=== PATIENT | female | born 1990 | race African-American/Black ===

== ENCOUNTER 2017-05-23 15:36 | Inpatient (IN) ==
[2017-05-23] MEDS ORDERED: DEXTROSE 5% NACL 0.45% 1,000 ML IV SCH (16:00)
[2017-05-23] MEDS ORDERED: DEXTROSE 50% 25 GM/50 ML SYRINGE IV ONE (16:02)
[2017-05-23] MEDS ORDERED: DEXTROSE 50% 25 GM/50 ML VIAL IV STA (16:06)
[2017-05-23 16:42] LABS: Basophils % 0.2 % (0.0-0.8); Eosinophils % 0.4 % (0.00-10.9); Hematocrit 30.1 VOL% (35.7-47.0); Hemoglobin 10.7 GM/DL (12.0-16.0); Immature Granulocytes % 0.6 %; Immature Granulocytes Absolute 0.05 #; Lymphocytes # 1.1 10*3/uL (1.4-4.0); Lymphocytes % 13.1 % (21.3-54.2); Mean Corpuscular HGB Conc 35.5 GM/DL (32-36); Mean Corpuscular Hemoglobin 30 PG (27-34); Mean Corpuscular Volume 85.3 FL (87-102); Mean Platelet Volume 9.5 FL (9.6-12.0); Monocytes # 0.6 10*3/uL (0.11-0.8); Monocytes % 6.7 % (1.7-12.7); Neutrophils # 6.8 10*3/uL (1.4-7.4); Platelet Count 269 T/CUMM (130-400); Red Blood Count 3.53 MC/CUMM (3.8-5.5); Red Cell Distribution Width 12.2 % (9.3-17.3); White Blood Count 8.6 T/CUMM (4-12)
[2017-05-23 17:12] LABS: Apearance,Urine Slightly Hazy (Clear); Bilirubin,Urine Negative (Negative); Blood, Urine Small mg/dL (Negative); Glucose,Urine (UA) >=500 mg/dL (Negative); Ketones,Urine Negative (Negative); Mucus,Urine Occasional /LPF (Occasional); Nitrite,Urine Negative (Negative); Protein,Urine 100 MG/DL; RBC,Urine 3 /HPF (0-4); Squamous Epithelial Cell,Urine Occasional /HPF (0-10); Urine Color Yellow (Yellow); Urine Specific Gravity 1.009 (1.001-1.035); Urine Urobilinogen < 2.0 EU/DL (0.2-1.0)
[2017-05-23 17:12] LABS: Albumin 2.8 G/DL (3.4-5.0); Bilirubin,Total 0.6 MG/DL (0.2-1.0); Calcium 9.1 MG/DL (8.5-10.1); Osmolality,Calculated 273.5 MOS/KG (273-304); Potassium 3.7 MMOL/L (3.5-5.1); Total Protein 6.4 G/DL (6.4-8.3)
[2017-05-23 17:15] LABS: Barbiturates Screen,Urine Negative (Negative); Benzodiazepines Screen,Urine Negative (Negative); Cannabinoid Screen,Urine Negative (Negative); Opiate Screen,Urine Negative (Negative); Phencyclidine Screen,Urine Negative (Negative)
[2017-05-23] MEDS ORDERED: GLUCAGON 1 MG VIAL IM PRN (18:00)
[2017-05-23] MEDS ORDERED: MAGNESIUM HYDROXIDE SUSP 30 ML UDCUP PO PRN (18:00)
[2017-05-23] MEDS ORDERED: BISACODYL 10 MG SUPP RECTAL PRN (18:00)
[2017-05-23] MEDS ORDERED: DEXTROSE 50% 25 GM/50 ML VIAL IV PRN (18:00)
[2017-05-23] MEDS ORDERED: IBUPROFEN 800 MG TABLET PO PRN (18:00)
[2017-05-23] MEDS: DEXTROSE 5% LACTATED RINGERS 1,000 ML IV SCH (18:58)
[2017-05-23] MEDS: DOCUSATE SODIUM 100 MG CAPSULE PO SCH (21:48)
[2017-05-23] MEDS: INSULIN LISPRO 100 UNIT/ML SUBCUT SCH (21:49)
[2017-05-24] MEDS: DEXTROSE 5% LACTATED RINGERS 1,000 ML IV SCH (03:46)
[2017-05-24] MEDS: ONDANSETRON 4 MG/2 ML VIAL IV PRN ×2 (03:51→13:49)
[2017-05-24] MEDS: ACETAMINOPHEN 325 MG TABLET PO PRN ×2 (06:17→22:18)
[2017-05-24] MEDS: INSULIN LISPRO 100 UNIT/ML SUBCUT SCH ×3 (08:34→13:01)
[2017-05-24] MEDS: DOCUSATE SODIUM 100 MG CAPSULE PO SCH (08:35)
[2017-05-24] MEDS ORDERED: INSULIN NPH 100 UNIT/ML SUBCUT SCH (12:30)
[2017-05-24] MEDS ORDERED: INSULIN REGULAR 100 UNIT/ML ONE (12:41)
[2017-05-24] MEDS: INSULIN REGULAR 100 UNIT/ML SUBCUT SCH ×2 (12:49→17:07)
[2017-05-24] MEDS: INSULIN NPH 100 UNIT/ML SUBCUT SCH (12:49)
[2017-05-24] MEDS ORDERED: INSULIN NPH 100 UNIT/ML SUBCUT ONE (22:24)
[2017-05-25] MEDS: INSULIN REGULAR 100 UNIT/ML SUBCUT PRN ×5 (00:36→23:57)
[2017-05-25] MEDS: INSULIN NPH 100 UNIT/ML SUBCUT SCH (08:18)
[2017-05-25] MEDS: INSULIN REGULAR 100 UNIT/ML SUBCUT SCH ×3 (08:19→18:26)
[2017-05-25] MEDS: LABETALOL 100 MG TABLET PO SCH (23:57)
[2017-05-26] MEDS: ALUMINUM/MAGNES/SIMETH MAX STR 30 ML UDCUP PO PRN ×2 (02:40→20:00)
[2017-05-26] MEDS: INSULIN REGULAR 100 UNIT/ML SUBCUT PRN (04:25)
[2017-05-26] MEDS ORDERED: DEXTROSE 50% 25 GM/50 ML VIAL IV PRN (07:15)
[2017-05-26] MEDS ORDERED: GLUCAGON 1 MG VIAL IM PRN (07:15)
[2017-05-26] MEDS: INSULIN NPH 100 UNIT/ML SUBCUT SCH (08:16)
[2017-05-26] MEDS: INSULIN REGULAR 100 UNIT/ML SUBCUT SCH ×7 (08:17→20:00)
[2017-05-26] MEDS: ONDANSETRON 4 MG/2 ML VIAL IV PRN (08:20)
[2017-05-26] MEDS: LABETALOL 100 MG TABLET PO SCH ×2 (10:04→20:00)
[2017-05-27] MEDS: INSULIN REGULAR 100 UNIT/ML SUBCUT SCH ×8 (00:08→22:18)
[2017-05-27 08:19] LABS: Basophils % 0.2 % (0.0-0.8); Eosinophils % 0.7 % (0.00-10.9); Hematocrit 28.5 VOL% (35.7-47.0); Hemoglobin 10.1 GM/DL (12.0-16.0); Immature Granulocytes % 0.2 %; Immature Granulocytes Absolute 0.01 #; Lymphocytes % 18.2 % (21.3-54.2); Mean Corpuscular HGB Conc 35.4 GM/DL (32-36); Mean Corpuscular Hemoglobin 30 PG (27-34); Mean Corpuscular Volume 85.1 FL (87-102); Mean Platelet Volume 9.9 FL (9.6-12.0); Monocytes # 0.5 10*3/uL (0.11-0.8); Monocytes % 8.2 % (1.7-12.7); Neutrophils % 72.5 % (38.7-73.9); Platelet Count 243 T/CUMM (130-400); Red Blood Count 3.35 MC/CUMM (3.8-5.5); White Blood Count 5.5 T/CUMM (4-12)
[2017-05-27] MEDS: INSULIN NPH 100 UNIT/ML SUBCUT SCH ×2 (08:32→17:07)
[2017-05-27 08:36] LABS: Calcium 8.3 MG/DL (8.5-10.1); Magnesium 1.8 MG/DL (1.8-2.4); Potassium 4.3 MMOL/L (3.5-5.1)
[2017-05-27] MEDS: LABETALOL 100 MG TABLET PO SCH ×2 (08:39→20:05)
[2017-05-27] MEDS: ONDANSETRON 4 MG/2 ML VIAL IV PRN ×2 (11:55→17:58)
[2017-05-27 14:41] LABS: VBG Base Excess 0.5 MEQ/L (0-4); VBG HCO3 24.9 MEQ/L (24-28); VBG Oxygen Saturation 98.4 %; VBG PH 7.431
[2017-05-27] MEDS ORDERED: PROMETHAZINE 25 MG SUPP RECTAL PRN (17:50)
[2017-05-27] MEDS ORDERED: PROMETHAZINE 12.5 MG SUPP RECTAL PRN (19:00)
[2017-05-28] MEDS: INSULIN REGULAR 100 UNIT/ML SUBCUT SCH ×8 (02:11→19:17)
[2017-05-28] MEDS: ONDANSETRON 4 MG/2 ML VIAL IV PRN (06:38)
[2017-05-28] MEDS: INSULIN NPH 100 UNIT/ML SUBCUT SCH ×2 (08:17→17:11)
[2017-05-28] MEDS: LABETALOL 100 MG TABLET PO SCH ×2 (09:51→21:59)
[2017-05-29] MEDS: INSULIN REGULAR 100 UNIT/ML SUBCUT SCH ×10 (02:32→22:00)
[2017-05-29] MEDS: INSULIN NPH 100 UNIT/ML SUBCUT SCH ×2 (08:41→17:14)
[2017-05-29] MEDS: LABETALOL 100 MG TABLET PO SCH ×2 (08:41→21:34)
[2017-05-29] MEDS ORDERED: DEXTROSE 50% 25 GM/50 ML VIAL IV PRN (16:51)
[2017-05-29] MEDS ORDERED: GLUCAGON 1 MG VIAL IM PRN (16:51)
[2017-05-29] MEDS: INSULIN GLARGINE 100 UNIT/ML SUBCUT SCH (21:34)
[2017-05-29] MEDS: DEXTROSE 5% LACTATED RINGERS 1,000 ML IV SCH (22:35)
[2017-05-30] MEDS: INSULIN LISPRO 100 UNIT/ML SUBCUT SCH ×3 (07:37→14:24)
[2017-05-30] MEDS: DEXTROSE 5% LACTATED RINGERS 1,000 ML IV SCH (08:18)
[2017-05-30] MEDS: INSULIN REGULAR 100 UNIT/ML SUBCUT SCH ×6 (08:34→22:18)
[2017-05-30] MEDS: LABETALOL 100 MG TABLET PO SCH ×2 (09:57→21:01)
[2017-05-30] MEDS: ONDANSETRON 4 MG/2 ML VIAL IV PRN (15:37)
[2017-05-30] MEDS: INSULIN GLARGINE 100 UNIT/ML SUBCUT SCH (21:01)
[2017-05-31 06:10] LABS: Basophils % 0.5 % (0.0-0.8); Eosinophils # 0.1 10*3/uL (0.0-0.87); Eosinophils % 1.4 % (0.00-10.9); Hematocrit 27.9 VOL% (35.7-47.0); Hemoglobin 9.8 GM/DL (12.0-16.0); Immature Granulocytes % 0.2 %; Immature Granulocytes Absolute 0.01 #; Lymphocytes % 33.5 % (21.3-54.2); Mean Corpuscular HGB Conc 35.1 GM/DL (32-36); Mean Corpuscular Hemoglobin 30 PG (27-34); Mean Corpuscular Volume 84.8 FL (87-102); Mean Platelet Volume 9.5 FL (9.6-12.0); Monocytes # 0.6 10*3/uL (0.11-0.8); Monocytes % 9.7 % (1.7-12.7); Neutrophils # 3.2 10*3/uL (1.4-7.4); Neutrophils % 54.7 % (38.7-73.9); Platelet Count 243 T/CUMM (130-400); Red Blood Count 3.29 MC/CUMM (3.8-5.5); Red Cell Distribution Width 11.9 % (9.3-17.3); White Blood Count 5.9 T/CUMM (4-12)
[2017-05-31 06:52] LABS: Calcium 8.9 MG/DL (8.5-10.1); Magnesium 1.7 MG/DL (1.8-2.4); Potassium 4.5 MMOL/L (3.5-5.1)
[2017-05-31] MEDS: INSULIN LISPRO 100 UNIT/ML SUBCUT SCH ×2 (09:13→12:41)
[2017-05-31] MEDS: LABETALOL 100 MG TABLET PO SCH ×2 (09:15→21:57)
[2017-05-31] MEDS: INSULIN GLARGINE 100 UNIT/ML SUBCUT SCH (21:57)
[2017-06-01] MEDS: INSULIN REGULAR 100 UNIT/ML SUBCUT SCH ×6 (00:27→15:11)
[2017-06-01] MEDS: INSULIN LISPRO 100 UNIT/ML SUBCUT SCH ×4 (08:49→17:30)
[2017-06-01] MEDS: LABETALOL 100 MG TABLET PO SCH ×2 (08:49→22:02)
[2017-06-01] MEDS: INSULIN GLARGINE 100 UNIT/ML SUBCUT SCH (22:01)
[2017-06-02] MEDS: INSULIN LISPRO 100 UNIT/ML SUBCUT SCH ×4 (08:45→17:32)
[2017-06-02] MEDS: INSULIN REGULAR 100 UNIT/ML SUBCUT SCH ×2 (08:45→19:30)
[2017-06-02] MEDS: DOCUSATE SODIUM 100 MG CAPSULE PO SCH ×2 (08:58→21:42)
[2017-06-02] MEDS: LABETALOL 100 MG TABLET PO SCH ×2 (08:58→21:42)
[2017-06-02] MEDS: MULTIVITAMIN (PRENATAL) TABLET PO SCH (09:00)
[2017-06-02] MEDS: INSULIN GLARGINE 100 UNIT/ML SUBCUT SCH (21:42)
[2017-06-03] MEDS: INSULIN REGULAR 100 UNIT/ML SUBCUT SCH ×4 (07:54→20:10)
[2017-06-03] MEDS: INSULIN LISPRO 100 UNIT/ML SUBCUT SCH ×3 (08:12→17:46)
[2017-06-03] MEDS: MULTIVITAMIN (PRENATAL) TABLET PO SCH (08:12)
[2017-06-03] MEDS: DOCUSATE SODIUM 100 MG CAPSULE PO SCH ×2 (08:13→20:51)
[2017-06-03] MEDS: LABETALOL 100 MG TABLET PO SCH ×2 (11:29→20:51)
[2017-06-03] MEDS: INSULIN GLARGINE 100 UNIT/ML SUBCUT SCH (20:51)
[2017-06-04 07:14] VITALS: BP 119/65
[2017-06-04] MEDS: INSULIN REGULAR 100 UNIT/ML SUBCUT SCH ×2 (07:28→09:42)
[2017-06-04] MEDS: LABETALOL 100 MG TABLET PO SCH (09:26)
[2017-06-04] MEDS: DOCUSATE SODIUM 100 MG CAPSULE PO SCH (09:26)
[2017-06-04] MEDS: MULTIVITAMIN (PRENATAL) TABLET PO SCH (09:26)
[2017-06-04] MEDS: INSULIN LISPRO 100 UNIT/ML SUBCUT SCH ×2 (09:27→14:29)
== END 2017-06-04 12:40 | disposition home or self-care (01) | DRG 781 ==
LOC: EDUNIT# → EDBD → N.ED 15:36 → N.EDINP 17:32 → N.OB 18:17
PROVIDERS: ADMIT Obstetrics & Gynecology; ATTEND Obstetrics & Gynecology

== ENCOUNTER 2017-06-05 20:40 | Inpatient (IN) ==
[2017-06-05] MEDS ORDERED: DEXTROSE 50% 25 GM/50 ML SYRINGE IV ONE (21:38)
[2017-06-05] MEDS ORDERED: DEXTROSE 50% 25 GM/50 ML VIAL IV STA (21:43)
[2017-06-05] MEDS ORDERED: DEXTROSE 10% 250 ML IV ONE (21:53)
[2017-06-05] MEDS ORDERED: DEXTROSE 10% 1,000 ML IV STA (21:58)
[2017-06-05] MEDS ORDERED: SODIUM CHLORIDE 0.9% 1,000 ML IV STA (22:07)
[2017-06-05] MEDS ORDERED: DEXTROSE 50% 25 GM/50 ML SYRINGE IV PRN (22:07)
[2017-06-05 22:57] LABS: Basophils % 0.1 % (0.0-0.8); Eosinophils % 0.2 % (0.00-10.9); Hematocrit 29.9 VOL% (35.7-47.0); Hemoglobin 10.6 GM/DL (12.0-16.0); Immature Granulocytes % 0.4 %; Immature Granulocytes Absolute 0.03 #; Lymphocytes % 11.3 % (21.3-54.2); Mean Corpuscular HGB Conc 35.5 GM/DL (32-36); Mean Corpuscular Hemoglobin 30 PG (27-34); Mean Corpuscular Volume 83.8 FL (87-102); Mean Platelet Volume 9.7 FL (9.6-12.0); Monocytes # 0.4 10*3/uL (0.11-0.8); Monocytes % 4.5 % (1.7-12.7); Neutrophils # 7.1 10*3/uL (1.4-7.4); Neutrophils % 83.5 % (38.7-73.9); Platelet Count 292 T/CUMM (130-400); Red Blood Count 3.57 MC/CUMM (3.8-5.5); Red Cell Distribution Width 11.6 % (9.3-17.3); White Blood Count 8.5 T/CUMM (4-12)
[2017-06-05 23:18] LABS: Alanine Aminotransferase 17 U/L (13-56); Albumin 2.8 G/DL (3.4-5.0); Alkaline Phosphatase 52 U/L (45-117); Aspartate Amino Transferase 14 U/L (0-37); Blood Urea Nitrogen 10 MG/DL (7-18); Glucose 159 MG/DL (74-106); Magnesium 1.8 MG/DL (1.8-2.4); Osmolality,Calculated 269.2 MOS/KG (273-304); Sodium 134 MMOL/L (136-145); Total Protein 6.6 G/DL (6.4-8.3)
[2017-06-05 23:47] LABS: Amorphous Crystals,Urine Occasional /HPF (Few); Apearance,Urine CLOUDY (Clear); Bacteria,Urine Occasional /HPF (Few); Bilirubin,Urine Negative (Negative); Blood, Urine Negative (Negative); Glucose,Urine (UA) >=500 mg/dL (Negative); Hyaline Casts,Urine 16 /LPF (0-3); Ketones,Urine Negative (Negative); Nitrite,Urine Negative (Negative); Protein,Urine 100 MG/DL; RBC,Urine 3 /HPF (0-4); Squamous Epithelial Cell,Urine Moderate /HPF (0-10); Urine Color Yellow (Yellow); Urine Urobilinogen < 2.0 EU/DL (0.2-1.0); WBC,Urine 4 /HPF (0-6)
[2017-06-05 23:59] LABS: Barbiturates Screen,Urine Negative (Negative); Benzodiazepines Screen,Urine Negative (Negative); Cannabinoid Screen,Urine Negative (Negative); Opiate Screen,Urine Negative (Negative); Phencyclidine Screen,Urine Negative (Negative)
[2017-06-06] MEDS ORDERED: cefTRIAXone 1,000 MG in SODIUM CHLORIDE 0.9% 100 ML IV STA (00:34)
[2017-06-06] MEDS ORDERED: cefTRIAXone 1,000 MG VIAL ONE (00:39)
[2017-06-06] MEDS ORDERED: ONDANSETRON 4 MG/2 ML VIAL IV PRN (03:48)
[2017-06-06] MEDS ORDERED: INFLUENZA VIRUS VACCINE 0.5 ML SYRINGE IM ONE (05:00)
[2017-06-06] MEDS ORDERED: DEXTROSE 50% 25 GM/50 ML VIAL IV PRN ×2 (05:01→12:19)
[2017-06-06] MEDS ORDERED: GLUCAGON 1 MG VIAL IM PRN ×2 (05:01→12:19)
[2017-06-06] MEDS ORDERED: BENZOCAINE/MENTHOL LOZENGE 18/BOX PO PRN (05:22)
[2017-06-06] MEDS ORDERED: DEXTROSE 10% 1,000 ML IV SCH (06:00)
[2017-06-06 06:04] LABS: Calcium 8.4 MG/DL (8.5-10.1); Osmolality,Calculated 276.8 MOS/KG (273-304); Potassium 3.8 MMOL/L (3.5-5.1)
[2017-06-06] MEDS: MULTIVITAMIN (PRENATAL) TABLET PO SCH (09:07)
[2017-06-06] MEDS: LABETALOL 100 MG TABLET PO SCH ×2 (09:07→20:46)
[2017-06-06] MEDS: ENOXAPARIN 40 MG/0.4 ML SYRINGE SUBCUT SCH (09:54)
[2017-06-06] MEDS: INSULIN REGULAR 100 UNIT/ML SUBCUT SCH ×2 (16:23→20:46)
[2017-06-06] MEDS: INSULIN LISPRO 100 UNIT/ML SUBCUT SCH (17:15)
[2017-06-06] MEDS ORDERED: MAGNESIUM HYDROXIDE SUSP 30 ML UDCUP PO PRN (19:17)
[2017-06-06] MEDS: DOCUSATE SODIUM 100 MG CAPSULE PO SCH (20:46)
[2017-06-06] MEDS ORDERED: INSULIN GLARGINE 100 UNIT/ML SUBCUT SCH (21:00)
[2017-06-07] MEDS: INSULIN REGULAR 100 UNIT/ML SUBCUT SCH ×4 (00:34→13:48)
[2017-06-07] MEDS: LABETALOL 100 MG TABLET PO SCH (09:16)
[2017-06-07] MEDS: MULTIVITAMIN (PRENATAL) TABLET PO SCH (09:16)
[2017-06-07] MEDS: ENOXAPARIN 40 MG/0.4 ML SYRINGE SUBCUT SCH (09:16)
[2017-06-07] MEDS: INSULIN LISPRO 100 UNIT/ML SUBCUT SCH ×3 (09:16→13:25)
[2017-06-07] MEDS: DOCUSATE SODIUM 100 MG CAPSULE PO SCH (09:16)
[2017-06-07 12:17] VITALS: BP 119/72
== END 2017-06-07 16:40 | disposition home or self-care (01) | DRG 566 ==
LOC: EDUNIT# → EDBD → N.ED 20:40 → N.EDINP 06-06 01:55 → N.OB 06-06 02:49

== ENCOUNTER 2018-01-28 06:44 | Observation (INO) ==
[2018-01-28] MEDS ORDERED: ONDANSETRON 4 MG/2 ML VIAL IV STA (07:22)
[2018-01-28] MEDS ORDERED: SODIUM CHLORIDE 0.9% 1,000 ML IV STA ×2 (07:22→09:03)
[2018-01-28] MEDS ORDERED: INSULIN LISPRO 100 UNIT/ML SUBCUT STA (07:23)
[2018-01-28 07:45] LABS: Apearance,Urine CLEAR (Clear); Bilirubin,Urine Negative (Negative); Blood, Urine Large mg/dL (Negative); Glucose,Urine (UA) >=500 mg/dL (Negative); Ketones,Urine 5 mg/dL (Negative); Nitrite,Urine Negative (Negative); Protein,Urine >=500 MG/DL; RBC,Urine 80 /HPF (0-4); Squamous Epithelial Cell,Urine Occasional /HPF (0-10); Urine Color Yellow (Yellow); Urine Specific Gravity 1.017 (1.001-1.035); Urine Urobilinogen < 2.0 EU/DL (0.2-1.0)
[2018-01-28 07:46] LABS: Basophils % 0.1 % (0.0-0.8); Eosinophils % 0.3 % (0.00-10.9); Hematocrit 30.8 VOL% (35.7-47.0); Hemoglobin 10.7 GM/DL (12.0-16.0); Immature Granulocytes % 0.1 %; Immature Granulocytes Absolute 0.01 #; Lymphocytes # 0.3 10*3/uL (1.4-4.0); Lymphocytes % 3.7 % (21.3-54.2); Mean Corpuscular HGB Conc 34.7 GM/DL (32-36); Mean Corpuscular Hemoglobin 29 PG (27-34); Mean Platelet Volume 9.5 FL (9.6-12.0); Monocytes # 0.4 10*3/uL (0.11-0.8); Monocytes % 5.5 % (1.7-12.7); Neutrophils # 6.9 10*3/uL (1.4-7.4); Neutrophils % 90.3 % (38.7-73.9); Platelet Count 249 T/CUMM (130-400); Red Blood Count 3.71 MC/CUMM (3.8-5.5); Red Cell Distribution Width 12.1 % (9.3-17.3); White Blood Count 7.7 T/CUMM (4-12)
[2018-01-28 07:50] LABS: Barbiturates Screen,Urine Negative (Negative); Benzodiazepines Screen,Urine Negative (Negative); Cannabinoid Screen,Urine Negative (Negative); Opiate Screen,Urine Negative (Negative); Phencyclidine Screen,Urine Negative (Negative)
[2018-01-28 08:06] LABS: Albumin 3.1 G/DL (3.4-5.0); Calcium 8.9 MG/DL (8.5-10.1); Osmolality,Calculated 296.2 MOS/KG (273-304); Potassium 3.9 MMOL/L (3.5-5.1); Total Protein 7.3 G/DL (6.4-8.3)
[2018-01-28 08:22] LABS: Band Neutrophils 6 % (0-10); Eosinophils 2 % (0-10); Lymphocytes 5 % (20-55); Platelet Estimate Adequate; Segmented Neutrophils 82 % (50-85); Total Cells Counted 100
[2018-01-28 08:23] LABS: Hypochromasia Slight
[2018-01-28] MEDS ORDERED: LABETALOL 20 MG/4 ML SYRINGE IV STA (09:03)
[2018-01-28] MEDS ORDERED: METOPROLOL TARTRATE 5 MG/5 ML VIAL IV STA (09:05)
[2018-01-28] MEDS ORDERED: ONDANSETRON 4 MG/2 ML VIAL IV PRN (09:43)
[2018-01-28] MEDS ORDERED: GLUCAGON 1 MG VIAL IM PRN (10:00)
[2018-01-28] MEDS ORDERED: LABETALOL 100 MG TABLET PO SCH (10:00)
[2018-01-28] MEDS: SODIUM CHLORIDE 0.9% 1,000 ML IV SCH ×2 (11:25→21:06)
[2018-01-28] MEDS: INSULIN REGULAR 100 UNIT/ML SUBCUT SCH ×5 (11:38→21:02)
[2018-01-28] MEDS: DILTIAZEM 30 MG TABLET PO SCH ×3 (12:27→21:03)
[2018-01-28] MEDS ORDERED: hydrALAZINE 20 MG/1 ML VIAL IV PRN (15:49)
[2018-01-28] MEDS ORDERED: INSULIN GLARGINE 100 UNIT/ML SUBCUT SCH (21:00)
[2018-01-29] MEDS: INSULIN REGULAR 100 UNIT/ML SUBCUT SCH ×6 (00:30→12:00)
[2018-01-29] MEDS ORDERED: IBUPROFEN 400 MG TABLET PO PRN (04:15)
[2018-01-29] MEDS: DEXTROSE 50% 25 GM/50 ML VIAL IV PRN ×2 (04:20→06:05)
[2018-01-29 06:06] LABS: Basophils % 0.2 % (0.0-0.8); Eosinophils # 0.1 10*3/uL (0.0-0.87); Eosinophils % 1.5 % (0.00-10.9); Hematocrit 25.8 VOL% (35.7-47.0); Hemoglobin 8.9 GM/DL (12.0-16.0); Immature Granulocytes % 0.3 %; Immature Granulocytes Absolute 0.02 #; Lymphocytes # 1.3 10*3/uL (1.4-4.0); Lymphocytes % 19.4 % (21.3-54.2); Mean Corpuscular HGB Conc 34.5 GM/DL (32-36); Mean Corpuscular Hemoglobin 29 PG (27-34); Mean Corpuscular Volume 82.7 FL (87-102); Mean Platelet Volume 9.6 FL (9.6-12.0); Monocytes # 0.5 10*3/uL (0.11-0.8); Monocytes % 8.1 % (1.7-12.7); Neutrophils # 4.7 10*3/uL (1.4-7.4); Neutrophils % 70.5 % (38.7-73.9); Platelet Count 244 T/CUMM (130-400); Red Blood Count 3.12 MC/CUMM (3.8-5.5); Red Cell Distribution Width 12.4 % (9.3-17.3); White Blood Count 6.6 T/CUMM (4-12)
[2018-01-29 06:32] LABS: Calcium 8.3 MG/DL (8.5-10.1); Potassium 2.9 MMOL/L (3.5-5.1)
[2018-01-29] MEDS: SODIUM CHLORIDE 0.9% 1,000 ML IV SCH (07:34)
[2018-01-29] MEDS: DILTIAZEM 30 MG TABLET PO SCH (07:59)
[2018-01-29] MEDS ORDERED: PANTOPRAZOLE 40 MG TABLET PO SCH (09:00)
[2018-01-29] MEDS ORDERED: LOSARTAN 50 MG TABLET PO SCH (09:00)
[2018-01-29] MEDS ORDERED: LISINOPRIL 5 MG TABLET PO SCH (09:00)
[2018-01-29] MEDS ORDERED: POTASSIUM CHLORIDE 20 MEQ TABLET PO PRN (09:50)
[2018-01-29] MEDS ORDERED: DEXTROSE 50% 25 GM/50 ML VIAL IV PRN (11:56)
[2018-01-29] MEDS ORDERED: GLUCAGON 1 MG VIAL IM PRN (11:56)
[2018-01-29 11:57] VITALS: BP 181/114
== END 2018-01-29 13:10 ==
LOC: N.ED 06:44 → N.EDINP 06:44 → N.2E 11:16
PROVIDERS: ADMIT Internal Medicine; ATTEND Internal Medicine

== ENCOUNTER 2018-05-28 08:17 | Inpatient (IN) ==
[2018-05-28] MEDS ORDERED: LABETALOL 20 MG/4 ML SYRINGE IV STA (08:38)
[2018-05-28 09:14] LABS: Calcium 8.6 MG/DL (8.5-10.1); Osmolality,Calculated 295.2 MOS/KG (273-304); Potassium 4.3 MMOL/L (3.5-5.1)
[2018-05-28] MEDS ORDERED: SODIUM CHLORIDE 0.9% 1,000 ML IV STA (09:35)
[2018-05-28] MEDS ORDERED: INSULIN REGULAR 100 UNIT/ML SUBCUT STA (09:36)
[2018-05-28] MEDS ORDERED: INSULIN NPH 100 UNIT/ML SUBCUT STA (10:52)
[2018-05-28] MEDS ORDERED: DILTIAZEM CD 120 MG CAPSULE PO ONE (11:15)
[2018-05-28] MEDS ORDERED: cloNIDine 0.1 MG/24 HR PATCH TRANSDERM ONE (11:16)
[2018-05-28] MEDS ORDERED: DIPH/TET/ACEL PERT BOOSTER VACCINE 0.5 ML VIAL IM ONE (11:21)
[2018-05-28] MEDS ORDERED: ONDANSETRON 4 MG/2 ML VIAL IV PRN (11:50)
[2018-05-28] MEDS ORDERED: GLUCAGON 1 MG VIAL IM PRN ×2 (11:50)
[2018-05-28] MEDS ORDERED: DEXTROSE 50% 25 GM/50 ML VIAL IV PRN (11:50)
[2018-05-28] MEDS ORDERED: DEXTROSE 50% 25 GM/50 ML SYRINGE IV PRN (11:50)
[2018-05-28] MEDS ORDERED: ACETAMINOPHEN 325 MG TABLET PO PRN (11:50)
[2018-05-28] MEDS ORDERED: cloNIDine 0.3 MG/24 HR PATCH TRANSDERM SCH (12:00)
[2018-05-28] MEDS ORDERED: INFLUENZA VIRUS VACCINE 0.5 ML SYRINGE IM ONE (12:16)
[2018-05-28] MEDS: LOSARTAN 50 MG TABLET PO SCH (12:33)
[2018-05-28] MEDS: DILTIAZEM CD 180 MG CAPSULE PO SCH (12:33)
[2018-05-28] MEDS: ENOXAPARIN 40 MG/0.4 ML SYRINGE SUBCUT SCH (12:33)
[2018-05-28] MEDS: SODIUM CHLORIDE 0.9% 1,000 ML IV SCH ×2 (12:34→20:34)
[2018-05-28] MEDS: INSULIN REGULAR 100 UNIT/ML SUBCUT SCH ×3 (13:01→21:50)
[2018-05-28] MEDS ORDERED: INSULIN DETEMIR 100 UNIT/ML SUBCUT SCH (21:00)
[2018-05-28] MEDS: INSULIN GLARGINE 100 UNIT/ML SUBCUT SCH (21:50)
[2018-05-29] MEDS: INSULIN REGULAR 100 UNIT/ML SUBCUT SCH ×6 (01:05→20:40)
[2018-05-29 03:42] LABS: Basophils % 0.2 % (0.0-0.8); Eosinophils # 0.1 10*3/uL (0.0-0.87); Eosinophils % 0.9 % (0.00-10.9); Hematocrit 21.2 VOL% (35.7-47.0); Immature Granulocytes % 0.3 %; Immature Granulocytes Absolute 0.02 #; Lymphocytes # 1.4 10*3/uL (1.4-4.0); Lymphocytes % 24.7 % (21.3-54.2); Mean Corpuscular Hemoglobin 29 PG (27-34); Mean Corpuscular Volume 86.9 FL (87-102); Mean Platelet Volume 10.9 FL (9.6-12.0); Monocytes # 0.5 10*3/uL (0.11-0.8); Neutrophils # 3.8 10*3/uL (1.4-7.4); Neutrophils % 64.9 % (38.7-73.9); Platelet Count 194 T/CUMM (130-400); Red Blood Count 2.44 MC/CUMM (3.8-5.5); Red Cell Distribution Width 13.1 % (9.3-17.3); White Blood Count 5.8 T/CUMM (4-12)
[2018-05-29] MEDS: SODIUM CHLORIDE 0.9% 1,000 ML IV SCH (03:43)
[2018-05-29 03:55] LABS: Osmolality,Calculated 287.1 MOS/KG (273-304); Potassium 3.6 MMOL/L (3.5-5.1)
[2018-05-29 04:08] LABS: Risk Ratio 3.34; Thyroid Stimulating Hormone 2.04 uIU/ml (0.358-3.74); VLDL CHOLESTEROL 21.2 MG/DL
[2018-05-29] MEDS: ENALAPRIL 2.5 MG/2 ML VIAL IV PRN (05:45)
[2018-05-29] MEDS: DILTIAZEM CD 180 MG CAPSULE PO SCH (08:15)
[2018-05-29] MEDS ORDERED: SODIUM CHLORIDE 0.9% 1,000 ML IV PRN (08:15)
[2018-05-29] MEDS: LOSARTAN 50 MG TABLET PO SCH (08:15)
[2018-05-29] MEDS ORDERED: MAGNESIUM SULF RIDER 2 GM in PREMIX 1 EACH IV ONE (08:30)
[2018-05-29 08:39] LABS: % Iron Saturation 17.7 % (18-50); Ferritin 178.1 ng/ml (8-252)
[2018-05-29] MEDS ORDERED: SPIRONOLACTONE 25 MG TABLET PO SCH (09:00)
[2018-05-29] MEDS: ENOXAPARIN 40 MG/0.4 ML SYRINGE SUBCUT SCH (12:40)
[2018-05-29 16:34] LABS: Hematocrit 28.4 VOL% (35.7-47.0); Hemoglobin 9.5 GM/DL (12.0-16.0)
[2018-05-29] MEDS: INSULIN GLARGINE 100 UNIT/ML SUBCUT SCH (20:40)
[2018-05-30] MEDS: METOPROLOL TARTRATE 5 MG/5 ML VIAL IV PRN ×3 (04:06→20:33)
[2018-05-30 05:51] LABS: Basophils % 0.4 % (0.0-0.8); Eosinophils # 0.1 10*3/uL (0.0-0.87); Eosinophils % 2.3 % (0.00-10.9); Hematocrit 31.3 VOL% (35.7-47.0); Hemoglobin 10.5 GM/DL (12.0-16.0); Immature Granulocytes % 0.4 %; Immature Granulocytes Absolute 0.02 #; Lymphocytes # 1.4 10*3/uL (1.4-4.0); Lymphocytes % 26.7 % (21.3-54.2); Mean Corpuscular HGB Conc 33.5 GM/DL (32-36); Mean Corpuscular Hemoglobin 29 PG (27-34); Mean Corpuscular Volume 87.7 FL (87-102); Mean Platelet Volume 10.5 FL (9.6-12.0); Monocytes # 0.5 10*3/uL (0.11-0.8); Monocytes % 8.5 % (1.7-12.7); Neutrophils # 3.3 10*3/uL (1.4-7.4); Neutrophils % 61.7 % (38.7-73.9); Platelet Count 188 T/CUMM (130-400); Red Blood Count 3.57 MC/CUMM (3.8-5.5); Red Cell Distribution Width 13.9 % (9.3-17.3); White Blood Count 5.3 T/CUMM (4-12)
[2018-05-30 06:03] LABS: Calcium 8.3 MG/DL (8.5-10.1); Osmolality,Calculated 283.1 MOS/KG (273-304); Potassium 3.8 MMOL/L (3.5-5.1)
[2018-05-30] MEDS: DILTIAZEM CD 180 MG CAPSULE PO SCH (08:16)
[2018-05-30] MEDS: LOSARTAN 50 MG TABLET PO SCH (08:16)
[2018-05-30] MEDS: ENALAPRIL 2.5 MG/2 ML VIAL IV PRN (08:16)
[2018-05-30] MEDS: INSULIN REGULAR 100 UNIT/ML SUBCUT SCH ×4 (08:19→20:31)
[2018-05-30] MEDS: FUROSEMIDE 20 MG TABLET PO SCH (09:09)
[2018-05-30] MEDS: ENOXAPARIN 40 MG/0.4 ML SYRINGE SUBCUT SCH (12:09)
[2018-05-30] MEDS: INSULIN GLARGINE 100 UNIT/ML SUBCUT SCH (20:31)
[2018-05-31] MEDS: METOPROLOL TARTRATE 5 MG/5 ML VIAL IV PRN (02:58)
[2018-05-31 06:34] LABS: Basophils % 0.7 % (0.0-0.8); Eosinophils # 0.1 10*3/uL (0.0-0.87); Eosinophils % 2.4 % (0.00-10.9); Hematocrit 31.5 VOL% (35.7-47.0); Hemoglobin 10.5 GM/DL (12.0-16.0); Immature Granulocytes % 0.7 %; Immature Granulocytes Absolute 0.03 #; Lymphocytes # 1.3 10*3/uL (1.4-4.0); Lymphocytes % 27.6 % (21.3-54.2); Mean Corpuscular HGB Conc 33.3 GM/DL (32-36); Mean Corpuscular Hemoglobin 29 PG (27-34); Mean Corpuscular Volume 87.3 FL (87-102); Mean Platelet Volume 10.8 FL (9.6-12.0); Monocytes # 0.4 10*3/uL (0.11-0.8); Monocytes % 9.1 % (1.7-12.7); Neutrophils # 2.7 10*3/uL (1.4-7.4); Neutrophils % 59.5 % (38.7-73.9); Platelet Count 191 T/CUMM (130-400); Red Blood Count 3.61 MC/CUMM (3.8-5.5); Red Cell Distribution Width 13.4 % (9.3-17.3); White Blood Count 4.6 T/CUMM (4-12)
[2018-05-31 06:52] LABS: Calcium 8.4 MG/DL (8.5-10.1); Osmolality,Calculated 286.3 MOS/KG (273-304); Potassium 3.9 MMOL/L (3.5-5.1)
[2018-05-31] MEDS ORDERED: CARVEDILOL 3.125 MG TABLET PO SCH (08:00)
[2018-05-31] MEDS: INSULIN REGULAR 100 UNIT/ML SUBCUT SCH ×4 (08:44→20:53)
[2018-05-31] MEDS: LOSARTAN 50 MG TABLET PO SCH (08:46)
[2018-05-31] MEDS: DILTIAZEM CD 180 MG CAPSULE PO SCH (08:46)
[2018-05-31] MEDS: FUROSEMIDE 20 MG TABLET PO SCH (08:47)
[2018-05-31] MEDS ORDERED: MAGNESIUM SULF RIDER 4 GM in PREMIX 1 EACH IV PRN (09:02)
[2018-05-31] MEDS ORDERED: MAGNESIUM SULF RIDER 2 GM in PREMIX 1 EACH IV PRN (09:02)
[2018-05-31] MEDS ORDERED: hydrALAZINE 20 MG/1 ML VIAL IV PRN (11:26)
[2018-05-31] MEDS: ENOXAPARIN 40 MG/0.4 ML SYRINGE SUBCUT SCH (12:17)
[2018-05-31] MEDS ORDERED: MAGNESIUM HYDROXIDE SUSP 30 ML UDCUP PO PRN (15:03)
[2018-05-31] MEDS: amLODIPine 10 MG TABLET PO SCH (15:41)
[2018-05-31] MEDS: CHLORTHALIDONE 25 MG TABLET PO SCH (15:41)
[2018-05-31] MEDS: CARVEDILOL 3.125 MG TABLET PO SCH (17:24)
[2018-05-31] MEDS: INSULIN GLARGINE 100 UNIT/ML SUBCUT SCH (20:52)
[2018-06-01] MEDS: FUROSEMIDE 20 MG TABLET PO SCH (08:26)
[2018-06-01] MEDS: CARVEDILOL 3.125 MG TABLET PO SCH (08:26)
[2018-06-01] MEDS: CHLORTHALIDONE 25 MG TABLET PO SCH (08:26)
[2018-06-01] MEDS: INSULIN REGULAR 100 UNIT/ML SUBCUT SCH ×2 (08:27→11:34)
[2018-06-01] MEDS: amLODIPine 10 MG TABLET PO SCH (08:27)
[2018-06-01] MEDS: ENOXAPARIN 40 MG/0.4 ML SYRINGE SUBCUT SCH (11:33)
[2018-06-01 12:55] VITALS: BP 110/63
== END 2018-06-01 15:35 | disposition home or self-care (01) | DRG 199 ==
LOC: N.ED 08:17 → SUATTDRO 10:50 → N.EDINP 10:50 → N.CC 11:11 → N.5E 05-30 14:40
PROVIDERS: ADMIT Internal Medicine; ATTEND Family Medicine